=== PATIENT | female | born 1990 | race Caucasian/White ===

== ENCOUNTER → 2017-01-01 | Outpatient (CLI) | payer OTHER ==
[~2017-01-01] MED LIST: HYDR1TAB86 PO; IBUP-1773 PO; PREN-93 PO
--- OUTSIDE RECORDS SUMMARY | 2017-01-01 13:00 | XMS REPORT | Continuity of Care Document ---
Author Author [facility] Organization [facility] Address Unknown Phone Unavailable Allergies Active Description Code Type Severity Reaction Onset Reported/Identified Relationship to Patient Clinical Status Yes codeine [id number] Drug Allergy Mild NAUSEA 12/22/2013 Medications Problems Date Dx Coded Attending Type Code Diagnosis Diagnosed By 12/25/2013 DRISS LUJAN MD Ot 280.0 CHR BLOOD LOSS ANEMIA 12/25/2013 DRISS LUJAN MD Ot 648.21 ANEMIA-DELIVERED 12/25/2013 DRISS LUJAN MD Ot 669.51 FORCEP OR VACUUM EXTR DELIVERY 12/25/2013 DRISS LUJAN MD Ot V04.81 ND FOR PROPHYLACTIC VACCIN AND INOCULATI 12/25/2013 DRISS LUJAN MD Ot V06.1 [id number], COMBINED [ 12/25/2013 DRISS LUJAN MD Ot V27.0 DELIVER-SINGLE LIVEBORN 10/24/2016 DRISS LUJAN MD Ot 649.73 CERVICAL SHORTENING, ANTEPARTUM CONDITIO 10/24/2016 DRISS LUJAN MD Ot 649.73 CERVICAL SHORTENING, ANTEPARTUM CONDITIO 10/24/2016 DRISS LUJAN MD Ot 649.73 CERVICAL SHORTENING, ANTEPARTUM CONDITIO Procedures Code Description Performed By Performed On 96.49 OTHER INSTILLATION 12/22/2013 72.71 VACUUM EXT DEL W EPISIOT 12/23/2013 Results Encounters ACCT No. Visit Date/Time Discharge Status Pt. Type Provider Facility Loc./Unit Complaint [id number] 12/22/2013 19:39:00 2013 11:00:00 DIS Inpatient DRISS LUJAN MD [facility] WS INDUCTION [id number] 08/22/2013 11:09:00 2012 23:59:59 CLS Outpatient DRISS LUJAN MD [facility] RAD FUNDAL HEIGHT DISCREPENCY [id number] 10/24/2016 10:18:00 ACT Outpatient LE ROLLINS, DRISS Dueñas [facility] RAD DATING
--- NOTE | 2017-01-01 20:08 | Diagnostic Imaging Report ---
OB ultrasound. INDICATION: survey. FINDINGS: The heart rate is 140 beats per minute. The placenta is anterior and is 2 cm from the internal os, low lying. survey demonstrates the stomach, the urinary bladder, the kidneys, the posterior fossa and the lateral ventricles with no definite abnormality. The spine, three-vessel cord and the cord insertion are not well demonstrated. The heart is fairly visualized with no definite abnormality. The growth parameters are all around 17 weeks and 6 days. This is concordant with the gestational age based on first trimester ultrasound. IMPRESSION: 1. Live intrauterine with appropriate interval growth. 2. Follow-up study in three weeks is recommended to reevaluate the low-lying placenta, the cord insertion, three-vessel cord, the heart, and the spine, Dictated by: Dictated on workstation # [id number]
== END ==
LOC: RAD 12:58
PROVIDERS: ATTEND Family Medicine
DX: Z36 Encounter for antenatal screening of mother (principal)
CPT/HCPCS: 76805

== ENCOUNTER → 2017-04-09 | Outpatient (CLI) | payer MEDICAID, OTHER ==
--- NOTE | 2017-04-09 15:51 | Diagnostic Imaging Report ---
INDICATION: survey incomplete due to cord insertion, three-vessel view, the heart, and the spine. TECHNIQUE: Multiple real-time grayscale images were obtained over the gravid uterus. COMPARISON: 01/01/2017. FINDINGS: heart rate is 125 beats per minute. The placenta is anterior and is now above the lower uterine segment. No placenta previa. Three-vessel cord, the spine, and four-chamber views are better seen at this time with no definite abnormality. The cord insertion is still not well seen due to position. Biometrical measurements are as follows: Biparietal 7.5 cm, age 30 weeks 1 days, at the 4th percentile. Head circumference 28.8 cm, age 31 weeks 5 days, at 12th percentile. Abdominal circumference 27.9 cm, age 32 weeks 0 days, at the 52nd percentile. Femur length 5.8 cm, age 30 weeks 4 days, and the 9th percentile. Sonographic estimate age: 31 weeks 1 days. Sonographic estimated date of delivery: 06-10-17. Estimated Weight: 1744 gm (+/- 255 gm). LMP percentile: 23%. heart rate: 125 beats per minute. number: 1 of 1. IMPRESSION: The cord insertion is still not seen. Another followup exam could be attempted to reevaluate. Dictated by: Dictated on workstation # [id number]
== END ==
LOC: RAD 11:44
PROVIDERS: ATTEND Family Medicine
DX: Z36 Encounter for antenatal screening of mother (principal); Z3A.31 31 weeks gestation of pregnancy
CPT/HCPCS: 76816

== ENCOUNTER 2017-05-30 20:03 | Inpatient (IN) | payer MEDICAID, OTHER ==
[~2017-05-30] VITALS: Ht 160 cm; Wt 56.2 kg
[2017-05-30] MEDS ORDERED: D5 LR IV SOLUTION 1,000 ML IV ONE (20:28)
[2017-05-30] MEDS ORDERED: DINOPROSTONE 10 MG (CERVIDIL) INSERT ONE (20:28)
[2017-05-30] MEDS: D5 LR IV SOLUTION 1,000 ML IV SCH (20:37)
[2017-05-30 21:00] VITALS: BP 112/65
[2017-05-30] MEDS ORDERED: CALCIUM CARBONATE 500 MG (TUMS) TAB.CHEW ONE ×2 (22:58)
[2017-05-31] VITALS (51 sets, daily range): BP systolic 91–136; BP diastolic 51–85
[2017-05-31] MEDS ORDERED: CALCIUM CARBONATE 500 MG (TUMS) TAB.CHEW PO ONE (00:45)
[2017-05-31] MEDS ORDERED: DINOPROSTONE 10 MG (CERVIDIL) INSERT PV ONE (00:45)
[2017-05-31] MEDS ORDERED: MINERAL OIL CONCENTRATE 99.9% 15 ML UDC TOP PRN (00:45)
[2017-05-31 03:15] LABS: BASOPHILS % (AUTO) 0 % (0-10); EOSINOPHILS % (AUTO) 1 % (0-10); LYMPHOCYTES # (AUTO) 1.4 X 10^3 (1.0-4.0); LYMPHOCYTES % (AUTO) 20 % (12-44); MEAN CORPUSCULAR HEMOGLOBIN 29 PG (25-34); MEAN CORPUSCULAR HGB CONC 32 G/DL (32-36); MEAN CORPUSCULAR VOLUME 90 FL (80-99); MEAN PLATELET VOLUME 12.1 FL (7.4-10.4); MONOCYTES # (AUTO) 0.8 X 10^3 (0.0-1.0); MONOCYTES % (AUTO) 11 % (0-12); NEUTROPHILS # (AUTO) 4.9 X 10^3 (1.8-7.8); NEUTROPHILS % (AUTO) 68 % (42-75); PLATELET COUNT 193 10^3/uL (130-400); RED BLOOD COUNT 3.27 10^6/uL (4.35-5.85); RED CELL DISTRIBUTION WIDTH 13.1 % (10.0-14.5); WHITE BLOOD COUNT 7.2 10^3/uL (4.3-11.0)
--- NOTE | 2017-05-31 04:00 | History & Physical-OB ---
OB - Chief Complaint & HPI Date/Time Date of Admission: Date of Admission: May 30, 2017 at 20:06 Time Seen by Provider: 04:00 Chief Complaint/History OB-Reason for Admission/Chief: Induction of Labor Hx : 2 Hx Para: 1 Expected Date of Delivery: Jun 05, 2017 Gestational Age in Weeks: 39 Gestational Age in Days: 2 History of Labs GBS negative Allergies and Home Medications Allergies Coded Allergies: codeine (Verified Allergy, Mild, NAUSEA, 12/22/13) "causes vomiting" per pt. Home Medications Hydrocodone Bit/Acetaminophen 1 Each Tablet, 1-2 TAB PO Q4H PRN for PAIN, #20 Prescribed by: FACUNDO JENNINGS on 12/25/13 1015 Ibuprofen 600 Mg Tablet, 600 MG PO Q6H PRN for CRAMPS, #30 Prescribed by: FACUNDO JENNINGS on 12/25/13 1015 Vit/Fe Fumarate/Fa 1 Each Tablet, 1 EACH PO DAILY, #30 Prescribed by: JARROD RILEY on 12/22/13 472 OB - History Hx of Present Care: Yes Ultrasounds: Normal mid trimester US Obstetrical Complications: None Medical Complications: None Obstetrical History Hx Termination: No Hx Multiple Gestation: No Hx Stillbirth: No Hx Complication: No Hx Induced Hypertens: No Hx Maternal Gestational Diabet: No Delivery History Hx Dystocia: No Hx Large For Gestational Age I: No Hx Small for Gestational Age I: No Hx Section: No Hx Vaginal Delivery Post C-Sec: No Hx Blood Disorders: No Adverse Rxn to Tranfusion: No Patient Past Medical History no chronic medical problems Social History/Family History Recent Infectious Disease Expo: No Alcohol Use: Denies Use Recreational Drug Use: No Immunizations Hepatitis A: Yes Hepatitis B: Yes OB - Admission Exam Physical Exam Date Seen by Provider: May 31, 2017 Time Seen by Provider: 04:00 Vitals: Vital Signs 05/30/17 21:00 Pulse 97 Resp 18 B/P (MAP) 112/65 O2 Delivery Room Air HEENT: Moist Membranes Heart: Rhythm Normal Lungs: Clear Abdomen: Gravid Cervical Dilatation: 2cm Effacement: 50% Station: -3 Membranes: Intact Accelerations: Accelerations Present Decelerations: No Decelerations [place] Variability: Average (6-25) Peters Scoring Tool (Modified) Dilation (cm): 1-2cm (1) Effacement (%): 31-51% (1) Descent/Station: -3 (0) Cervix Consistency: Medium(1) Cervix Position: Middle/Mid-Position (1) Add 1 point for: Each previous vaginal delivery (1) Peters Score: 5 Labs Laboratory Tests Test 05/30/17 20:15 Range/Units White Blood Count 7.2 4.3-11.0 10^3/uL Red Blood Count 3.27 L 4.35-5.85 10^6/uL Hemoglobin 9.4 L 11.5-16.0 G/DL Hematocrit 29 L 35-52 % Mean Corpuscular Volume 90 80-99 FL Mean Corpuscular Hemoglobin 29 25-34 PG Mean Corpuscular Hemoglobin Concent 32 32-36 G/DL Red Cell Distribution Width 13.1 10.0-14.5 % Platelet Count 193 130-400 10^3/uL Mean Platelet Volume 12.1 H 7.4-10.4 FL Neutrophils (%) (Auto) 68 42-75 % Lymphocytes (%) (Auto) 20 12-44 % Monocytes (%) (Auto) 11 0-12 % Eosinophils (%) (Auto) 1 0-10 % Basophils (%) (Auto) 0 0-10 % Neutrophils # (Auto) 4.9 1.8-7.8 X 10^3 Lymphocytes # (Auto) 1.4 1.0-4.0 X 10^3 Monocytes # (Auto) 0.8 0.0-1.0 X 10^3 Eosinophils # (Auto) 0.0 0.0-0.3 10^3/uL Basophils # (Auto) 0.0 0.0-0.1 10^3/uL OB - Assessment/Plan/Diagnosis Assessment Assessment: induction of labor Plan Plan: Induction (by cervidil) DRISS LUJAN MD May 31, 2017 04:00
[2017-05-31] MEDS: D5 LR IV SOLUTION 1,000 ML IV SCH ×2 (04:46→12:48)
[2017-05-31] MEDS ORDERED: CATHETER FLUSH 10 ML SYR IV SCH ×2 (06:00→22:00)
[2017-05-31] MEDS ORDERED: OXYTOCIN/NORMAL SALINE 500 ML IV SCH ×2 (07:34→15:25)
[2017-05-31] MEDS ORDERED: LACTATED RINGERS 1,000 ML IV ONE (08:06)
[2017-05-31] MEDS ORDERED: SUFENTA 0.6MCG/ML BUPIVA 0.125 100 ML ONE (08:24)
[2017-05-31] MEDS ORDERED: fentaNYL INJECTION 100 MCG/2 ML AMP ONE (09:12)
[2017-05-31] MEDS ORDERED: BUPIVACAINE 0.25% 30 ML (SENSORCAINE) VIAL ONE (09:13)
[2017-05-31] MEDS ORDERED: LACTATED RINGERS 1,000 ML IV SCH (10:03)
[2017-05-31] MEDS ORDERED: ONDANSETRON 4 MG/2 ML (SDV) Z0FRAN IV PRN (10:15)
[2017-05-31] MEDS ORDERED: fentaNYL INJECTION 100 MCG/2 ML AMP IVP ONE (10:15)
[2017-05-31] MEDS ORDERED: NALOXONE 0.4 MG/ML 1 ML (NARCAN) VIAL IV PRN ×2 (10:15)
[2017-05-31] MEDS ORDERED: METOCLOPRAMIDE INJ 10 MG/2 ML (REGLAN) IV PRN (10:15)
[2017-05-31] MEDS ORDERED: diphenhydrAMINE 50 MG/ML INJ (BENADRYL) IV PRN (10:15)
[2017-05-31] MEDS ORDERED: EPIDURAL (SUFENTA 0.6MCG/ML BUPIVA 0.125%) 100 ML BAG EPI PRN (10:15)
[2017-05-31] MEDS ORDERED: BUPIVACAINE 0.25% 30 ML (SENSORCAINE) VIAL INJ ONE (10:15)
[2017-05-31] MEDS ORDERED: IBUPROFEN 600 MG (MOTRIN) TAB PO ONE (14:05)
[2017-05-31] MEDS ORDERED: TETANUS,DIPTH,PERTUSS P/F (BOOSTRIX) 0.5 ML VIAL IM ONE (15:30)
[2017-05-31] MEDS ORDERED: WITCH HAZEL(TUCKS) 40 EA JAR TOP PRN (15:30)
[2017-05-31] MEDS ORDERED: MEASLES,MUMPS,RUBELLA 1 EA INJ SQ ONE (15:30)
[2017-05-31] MEDS ORDERED: HYDROcodone/APAP 5 MG/325 MG (LORTAB) TAB PO PRN (15:30)
[2017-05-31] MEDS ORDERED: BENZOCAINE/MENTHOL (DERMOPLAST) 56 ML CAN TP PRN (15:30)
--- NOTE | 2017-05-31 15:43 | OB Labor & Delivery Record ---
L&D History Date of Service Date of Service: May 31, 2017 History Expected Date of Delivery: Jun 05, 2017 Gestational Age in Weeks: 39 Hx : 2 Hx Para: 1 Complications Events: Routine care Operative Indications (Cesarea: N/A-Vaginal Delivery Intrapartal Events: None L&D Stage1 Stage One Onset of Labor - Date: May 31, 2017 Onset of Labor - Time: 07:15 Monitors and Tracing Monitor Mode: Internal Heart Rate: 120 Monitor Accelerations: Uniform Monitor Decelerations: Early Station: -3 Group Home Variability: Average (6-10) Short Term Variability: Present Presentation: Vertex Vital Signs VS - Last 72 Hours, by Label 05/30/17 05/31/17 05/31/17 05/31/17 21:00 07:00 07:30 07:45 Temp 98.4 97.2 Pulse 97 64 79 62 Resp 18 18 18 18 B/P (MAP) 112/65 102/55 126/85 111/66 Pulse Ox 98 O2 Delivery Room Air Room Air Room Air Room Air 05/31/17 05/31/17 05/31/17 05/31/17 08:00 08:15 08:30 08:45 Pulse 68 68 65 65 Resp 18 18 18 18 B/P (MAP) 112/69 110/64 110/65 110/65 O2 Delivery Room Air Room Air Room Air Room Air 05/31/17 05/31/17 05/31/17 05/31/17 09:00 09:15 09:21 09:24 Temp 97.8 Pulse 70 71 71 87 Resp 18 18 18 18 B/P (MAP) 107/62 117/69 107/67 104/65 Pulse Ox 100 99 100 O2 Delivery Room Air Room Air Room Air Room Air 05/31/17 05/31/17 05/31/17 05/31/17 09:25 09:28 09:31 09:34 Pulse 66 80 82 100 Resp 18 18 18 18 B/P (MAP) 106/65 107/69 107/59 108/66 Pulse Ox 100 99 98 98 O2 Delivery Room Air Room Air Room Air Room Air 05/31/17 05/31/17 05/31/17 05/31/17 09:36 09:39 09:42 09:45 Pulse 86 102 63 110 Resp 18 18 18 18 B/P (MAP) 113/66 103/59 112/64 108/71 Pulse Ox 97 97 97 98 O2 Delivery Room Air Room Air Room Air Room Air 05/31/17 05/31/17 05/31/17 05/31/17 09:48 09:51 09:54 09:57 Pulse 102 79 96 98 Resp 18 18 18 18 B/P (MAP) 107/72 105/60 103/60 99/67 Pulse Ox 98 97 97 98 O2 Delivery Room Air Room Air Room Air Room Air 05/31/17 05/31/17 05/31/17 05/31/17 10:00 10:05 10:10 10:15 Temp 97.6 Pulse 78 76 87 75 Resp 18 18 18 18 B/P (MAP) 91/56 97/58 106/63 110/59 Pulse Ox 98 98 98 99 O2 Delivery Room Air Room Air Room Air Room Air 05/31/17 05/31/17 05/31/17 05/31/17 10:20 10:25 10:30 10:45 Pulse 75 103 85 98 Resp 18 18 18 18 B/P (MAP) 109/51 94/56 116/60 108/68 Pulse Ox 99 98 98 98 O2 Delivery Room Air Room Air Room Air Room Air 05/31/17 11:00 Pulse 72 Resp 18 B/P (MAP) 100/67 Pulse Ox 100 O2 Delivery Room Air Signs of Distress by FHT Signs of Distress no Rupture of Membranes Spontaneous Ruture of Membrane: No Amniotic Membrane Rupture Time: 07 Amniotic Membrane Fluid Desc.: Clear Induction/Anesthesia Epidural Cath Placement - Time: 09:00 L&D Stage2 Stage Two Stage II Date: May 31, 2017 Stage II Time: 13:14 Monitors and Tracing Monitor Mode: Internal Heart Rate: 120 Monitor Accelerations: Uniform Monitor Decelerations: None Supervisor [place]ilting Variability: Average (6-10) Short Term Variability: Present Position: Left Occiput Anterior Presentation: Vertex Signs of Distress by FHT Signs of Distress no Cord Descript/Complications Cord Vessel Description: 3 Vessels Delivery Type Infant Delivery Method: Spontaneous Vaginal Anterior Shoulder: Left Episiotomy/Perineal Laceration Laceraction(s)/Extensions: No Condition of Infant Delivery 1 minute Comment: 7 5 minute Comment: 9 Condition of Infant Condition of Infant: Living Exam: No Observed Abnormalities Resuscitation Resuscitation: N/A - Spontaneous Resp L&D Stage3 Stage Three Stage III Date: May 31, 2017 Stage III Time: 13:18 Pictocin Pitocin Administration mu/min: 10 Pitocin ml/hr: 10 Pitocin Administration Comment: OXYTOCIN INCREASED Placenta Delivery Placenta Delivery: Spontaneous Delivery Summary Summary 200 Condition of Delivery Examined: Cervix Examined Post Hemorrhage: No DRISS LUJAN MD May 31, 2017 15:42
[2017-05-31] MEDS: IBUPROFEN 600 MG (MOTRIN) TAB PO SCH ×2 (16:07→22:10)
[2017-06-01 01:00] VITALS: BP 93/51
[2017-06-01 04:00] VITALS: BP 97/64
[2017-06-01] MEDS: IBUPROFEN 600 MG (MOTRIN) TAB PO SCH ×2 (04:12→09:52)
[2017-06-01 06:45] LABS: BASOPHILS % (AUTO) 0 % (0-10); EOSINOPHILS % (AUTO) 1 % (0-10); LYMPHOCYTES # (AUTO) 1.2 X 10^3 (1.0-4.0); LYMPHOCYTES % (AUTO) 20 % (12-44); MEAN CORPUSCULAR HEMOGLOBIN 29 PG (25-34); MEAN CORPUSCULAR HGB CONC 32 G/DL (32-36); MEAN CORPUSCULAR VOLUME 90 FL (80-99); MEAN PLATELET VOLUME 11.1 FL (7.4-10.4); MONOCYTES # (AUTO) 0.7 X 10^3 (0.0-1.0); MONOCYTES % (AUTO) 11 % (0-12); NEUTROPHILS # (AUTO) 4.1 X 10^3 (1.8-7.8); NEUTROPHILS % (AUTO) 68 % (42-75); PLATELET COUNT 152 10^3/uL (130-400); RED BLOOD COUNT 3.15 10^6/uL (4.35-5.85)
--- NOTE | 2017-06-01 08:00 | Discharge Summary ---
Diagnosis/Chief Complaint Date of Admission May 30, 2017 at 20:06 Date of Discharge June 01, 2017 Discharge Date: Jun 01, 2017 Discharge Time: 15:00 Admission Diagnosis Admission Diagnosis 1. Intrauterine at term 39 weeks 2. Anemia secondary to iron deficiency during Discharge Diagnosis 1. Intrauterine at term 39 weeks 2. Anemia secondary to iron deficiency during Reason Hospital Visit 26-year-old 2 now term 2 female who initially presented to labor and delivery during the evening of May 30, 2017 for induction of labor at 39 weeks 2 days gestation. Patient's care was essentially unremarkable. She had an occasional contraction upon presentation. She underwent Cervidil cervical ripening and tolerated well. Her EDC was listed as June 05, 2017. Discharge Summary-OBS Procedures 1. Epidural per anesthesia 2. Spontaneous vaginal delivery Discharge Physical Examination Allergies: Coded Allergies: codeine (Verified Allergy, Mild, NAUSEA, 12/22/13) "causes vomiting" per pt. Vitals & I&Os Vital Signs Date Time Temp Pulse Resp B/P (MAP) Pulse Ox O2 Delivery O2 Flow Rate FiO2 06/01/17 04:00 98.1 72 17 97/64 100 Room Air General Appearance: No Acute Distress HEENT: Mucous Memb Moist/[place] Respiratory: Clear to Auscultation Cardiovascular: Regular Rate Abdominal: Soft (with uterus firm) Hospital Course upon presentation she underwent Cervidil cervical ripening and tolerated well. She developed a contraction pattern. At 0700 in the morning of May 31 Cervidil was removed. She underwent amniotomy with placement of scalp electrode with clear fluid noted. Patient required Pitocin augmentation to achieve adequate contraction pattern. She received epidural per anesthesia without problems. She tolerated the epidural very well. Eventually she went on to completion and delivered a term viable female with Apgars of 9 at 1 minute and 9 at 5 minutes. See labor and delivery summary for full details. Following delivery patient underwent care orders. She had no complications during the remainder of hospital stay. She was ambulatory. She did not develop shortness of breath. Her hemoglobin on June 01, 2017 was 9.1 compared to admission hemoglobin of 9.4. All questions were answered on the morning of June 01, 2017. She will follow up in 6 weeks. Pending Labs Laboratory Tests 06/01/17 06:36: White Blood Count 6.0, Red Blood Count 3.15, Hemoglobin 9.1, Hematocrit 28, Mean Corpuscular Volume 90, Mean Corpuscular Hemoglobin 29, Mean Corpuscular Hemoglobin Concent 32, Red Cell Distribution Width 13.0, Platelet Count 152, Mean Platelet Volume 11.1, Neutrophils (%) (Auto) 68, Lymphocytes (%) (Auto) 20 , Monocytes (%) (Auto) 11, Eosinophils (%) (Auto) 1, Basophils (%) (Auto) 0, Neutrophils # (Auto) 4.1, Lymphocytes # (Auto) 1.2, Monocytes # (Auto) 0.7, Eosinophils # (Auto) 0.0, Basophils # (Auto) 0.0 Discharge Instructions to patient/family Please see electonic discharge instructions given to patient. Discharge Medications Reviewed and agree with Discharge Medication list on patient's Discharge Instruction sheet Clinical Quality Measures DVT/VTE Risk/Contraindication: Risk Factor Score Per Nursin RFS Level Per Nursing on Admit: 3=High DRISS LUJAN MD Jun 01, 2017 08:00
--- NOTE | 2017-06-01 08:02 | Discharge Inst-Women's Service ---
Discharge Inst-Women's Serv Consults/Follow Up Additional Follow Up: Yes (with Dr. Lujan in 6 weeks) Activity Activity: Activity as Tolerated (with vaginal rest for 6 weeks) Driving Instructions: You May Drive NO SMOKING: NO SMOKING Diet Discharge Diet: Regular Diet Return to The Hospital For: as below Symptoms to Report to : Bleeding Excessive, Pain Increased, Fever Over 101 Degrees F, Vaginal Bleeding Increase, Vaginal Discharge Foul For Any Problems or Questions: Contact Your Physician DRISS LUJAN MD Jun 01, 2017 08:02
[2017-06-01 08:45] VITALS: BP 106/94
--- NOTE | 2017-06-01 12:50 | Anesthesia-Regional Post-Op ---
Regional Patient Condition Mental Status: Alert, Oriented x3 Circulation: Same as Pre-Op Headache: Absent Sensation: Full Recovery Motor Block: Absent Post Op Complications Complications None Follow Up Care/Instructions Patient Instructions None needed. Anesthesia/Patient Condition Patient is doing well, no complaints, stable vital signs, no apparent adverse anesthesia problems. No complications reported per nursing. D/C home per [facility] Criteria: No ALYSE CARLSON CRNA Jun 01, 2017 12:50
[2017-06-01] MEDS ORDERED: TETANUS,DIPTH,PERTUSS P/F (BOOSTRIX) 0.5 ML VIAL IM ONE (16:06)
== END 2017-06-01 17:05 | disposition home or self-care (01) | DRG 775 ==
LOC: WSo 20:03 → LDRP 20:04 → WSo 20:05 → LDRP 20:06 → ENPENDDIS 06-01 15:00
PROVIDERS: ADMIT Family Medicine; ATTEND Family Medicine
PROC: 10E0XZZ Delivery of Products of Conception, External Approach (ICD-10-PCS; principal; 2017-05-31)
DX: O99.013 Anemia complicating pregnancy, third trimester (principal); D50.9 Iron deficiency anemia, unspecified; Z3A.39 39 weeks gestation of pregnancy; Z37.0 Single live birth; Z23 Encounter for immunization
CPT/HCPCS: 36415; 85025; 86850; 86900; 86901; 90707; 90715

== ENCOUNTER → 2019-02-18 | Outpatient (CLI) | payer MEDICAID ==
--- NOTE | 2019-02-18 12:47 | Diagnostic Imaging Report ---
INDICATION: anatomical assessment during normal . TECHNIQUE: Multiple real-time grayscale images were obtained over the gravid uterus. COMPARISON: None. FINDINGS: Single viable intrauterine , currently in a breech presentation. Normal amount of amniotic fluid. The placenta is anterior and without evidence for previa. Visualized anatomical structures including the kidneys, bladder, stomach, intracranial structures, four-chamber heart, three-vessel cord, and spine are unremarkable. The cord insertion site cannot be well visualized owing to positioning. Maternal adnexa is not visualized. Biometrical measurements are as follows: Biparietal 8.80 cm, age 35 weeks 4 days. Head circumference 32.45 cm, age 36 weeks 6 days. Abdominal circumference 31.83 cm, age 35 weeks 6 days. Femur length 6.35 cm, age 32 weeks 6 days. Sonographic estimate age: 35 weeks 2 days. Sonographic estimated date of delivery: 03/23/2019. Estimated Weight: 2585 gm (+/- 377 gm). LMP percentile: 11%. heart rate: 136 beats per minute. number: 1 of 1. IMPRESSION: 1. Single viable intrauterine , currently in a breech presentation. Sonographic estimated age at 35 weeks 2 days for an estimated date of delivery of March 23, 2019. No definitive abnormality is noted at this advanced gestational age. Cord insertion site however cannot be well visualized. Dictated by: Dictated on workstation # [id number]
== END ==
LOC: RAD 10:32
PROVIDERS: ATTEND Family Medicine
DX: Z36.89 Encounter for other specified antenatal screening (principal); Z3A.35 35 weeks gestation of pregnancy
CPT/HCPCS: 76805

== ENCOUNTER 2019-03-12 15:27 | Outpatient (CLI) | payer MEDICAID ==
[~2019-03-12] VITALS: Ht 160 cm; Wt 54.9 kg
--- NOTE | 2019-03-12 15:20 | NUR ---
ELIZABETH WILLIS presented to unit via ambulation from home, accompanied by SO , with c/o VAGINAL PRESSURE. ELIZABETH WILLIS weighed, gowned, voided, and to bed. EFHM and TOCO applied, VS taken. ELIZABETH WILLIS oriented to bed controls, call light, TV, heat, and A/C controls.
[2019-03-12 15:30] VITALS: BP 105/61
--- NOTE | 2019-03-12 15:50 | NUR ---
SVE per Salomón Arrieta RN. 1.5cm, 60%, -3
--- NOTE | 2019-03-12 16:06 | NUR ---
Dr. Mazariegos notified of pt. arrival, complains and evaluation. Orders received to discharge home on labor precautions.
--- NOTE | 2019-03-12 16:30 | NUR ---
Discharge instructions explained and packet given to pt, signature obtained to verify understanding. Pt. ambulated off unit without without difficulty, no S/S of distress noted. All personal belongings in pt. possession.
== END 2019-03-12 16:30 | disposition home or self-care (01) ==
LOC: WSo 15:27 → LDRP 15:29 → WSo 16:30
PROVIDERS: ATTEND Family Medicine
DX: O99.89 Other specified diseases and conditions complicating pregnancy, childbirth and the puerperium (principal); R10.2 Pelvic and perineal pain; Z3A.38 38 weeks gestation of pregnancy
CPT/HCPCS: 99213

== ENCOUNTER 2019-03-18 06:14 | Inpatient (IN) | payer MEDICAID ==
[2019-03-18] VITALS (68 sets, daily range): BP systolic 82–151; BP diastolic 49–72
[~2019-03-18] VITALS: Ht 160 cm; Wt 56.7 kg
--- NOTE | 2019-03-18 06:00 | NUR ---
ELIZABETH WILLIS presented to unit via from ED, accompanied by S/O, with c/o INDUCTION. ELIZABETH WILLIS weighed, gowned, voided, and to bed. EFHM and TOCO applied, VS taken. ELIZABETH WILLIS oriented to bed controls, call light, TV, heat, and A/C controls.
[2019-03-18] MEDS ORDERED: OXYTOCIN/NORMAL SALINE 500 ML IV SCH ×3 (06:21→18:46)
[2019-03-18] MEDS ORDERED: D5 LR IV SOLUTION 1,000 ML IV ONE (06:30)
[2019-03-18] MEDS: D5 LR IV SOLUTION 1,000 ML IV SCH ×2 (06:39→11:33)
[2019-03-18 06:40] LABS: BASOPHILS % (AUTO) 0 % (0-10); EOSINOPHILS # (AUTO) 0.1 10^3/uL (0.0-0.3); EOSINOPHILS % (AUTO) 1 % (0-10); HEMATOCRIT 30 % (35-52); HEMOGLOBIN 9.6 G/DL (11.5-16.0); LYMPHOCYTES # (AUTO) 1.7 X 10^3 (1.0-4.0); LYMPHOCYTES % (AUTO) 28 % (12-44); MEAN CORPUSCULAR HEMOGLOBIN 28 PG (25-34); MEAN CORPUSCULAR HGB CONC 33 G/DL (32-36); MEAN CORPUSCULAR VOLUME 87 FL (80-99); MEAN PLATELET VOLUME 11.2 FL (7.4-10.4); MONOCYTES # (AUTO) 0.6 X 10^3 (0.0-1.0); MONOCYTES % (AUTO) 11 % (0-12); NEUTROPHILS # (AUTO) 3.7 X 10^3 (1.8-7.8); NEUTROPHILS % (AUTO) 60 % (42-75); PLATELET COUNT 194 10^3/uL (130-400); RED CELL DISTRIBUTION WIDTH 13.5 % (10.0-14.5); WHITE BLOOD COUNT 6.1 10^3/uL (4.3-11.0)
--- NOTE | 2019-03-18 07:13 | History & Physical-OB ---
OB - Chief Complaint & HPI Date/Time Date of Admission: Date of Admission: March 18, 2019 at 06:14 Date seen by a Provider: March 18, 2019 Time Seen by a Provider: 07:05 Chief Complaint/History OB-Reason for Admission/Chief: Induction of Labor Hx : 3 Hx Para: 2 Expected Date of Delivery: March 24, 2019 Gestational Age in Weeks: 39 Gestational Age in Days: 1 Admission Nurse Assessment Rev: Yes History of Labs GBS negative Allergies and Home Medications Allergies Coded Allergies: codeine (Verified Allergy, Mild, NAUSEA, 12/22/13) "causes vomiting" per pt. Home Medications Vit/Fe Fumarate/Fa 1 Each Tablet, 1 EACH PO DAILY Prescribed by: JARROD RILEY on 12/22/13 360 Patient Home Medication List Home Medication List Reviewed: Yes OB - History Hx of Present Care: Yes Ultrasounds: Other (normal third trimester US) Obstetrical Complications: None Medical Complications: None Obstetrical History Hx Termination: No Hx Multiple Gestation: No Hx Stillbirth: No Hx Complication: No Hx Induced Hypertens: No Hx Maternal Gestational Diabet: No Delivery History Hx Dystocia: No Hx Large For Gestational Age I: No Hx Small for Gestational Age I: No Hx Section: No Hx Vaginal Delivery Post C-Sec: No Hx Blood Disorders: No Adverse Rxn to Tranfusion: No Patient Past Medical History no chronic medical problems Immunizations Hepatitis A: Yes Hepatitis B: Yes OB - Admission Exam Physical Exam HEENT: Moist Membranes Heart: Rhythm Normal Lungs: Clear Abdomen: Gravid (with FH of 36) Extremities: Normal Effacement: 75% Station: -2 Membranes: Intact Heart Rate: 140's Accelerations: Accelerations Present Short Term Variability: Present Half-Way Variability: Average (6-25) Contractions on Admission: >10 Minutes Apart Intensity: Mild Peters Scoring Tool (Modified) Dilation (cm): 1-2cm (1) Effacement (%): 51-79% (2) Descent/Station: -2 (1) Cervix Consistency: Soft (2) Cervix Position: Posterior (0) Add 1 point for: Each previous vaginal delivery (1) Peters Score: 8 Labs Laboratory Tests Test 03/18/19 06:20 Range/Units White Blood Count 6.1 4.3-11.0 10^3/uL Red Blood Count 3.40 L 4.35-5.85 10^6/uL Hemoglobin 9.6 L 11.5-16.0 G/DL Hematocrit 30 L 35-52 % Mean Corpuscular Volume 87 80-99 FL Mean Corpuscular Hemoglobin 28 25-34 PG Mean Corpuscular Hemoglobin Concent 33 32-36 G/DL Red Cell Distribution Width 13.5 10.0-14.5 % Platelet Count 194 130-400 10^3/uL Mean Platelet Volume 11.2 H 7.4-10.4 FL Neutrophils (%) (Auto) 60 42-75 % Lymphocytes (%) (Auto) 28 12-44 % Monocytes (%) (Auto) 11 0-12 % Eosinophils (%) (Auto) 1 0-10 % Basophils (%) (Auto) 0 0-10 % Neutrophils # (Auto) 3.7 1.8-7.8 X 10^3 Lymphocytes # (Auto) 1.7 1.0-4.0 X 10^3 Monocytes # (Auto) 0.6 0.0-1.0 X 10^3 Eosinophils # (Auto) 0.1 0.0-0.3 10^3/uL Basophils # (Auto) 0.0 0.0-0.1 10^3/uL OB - Assessment/Plan/Diagnosis Assessment Assessment: induction of labor Admission Dx IUP at term, 39w1d Admission Status: Inpatient Order (span 2 midnights) Reason for Inpatient Admission: L&D induction by AROM Plan Plan: Induction Induction Method: AROM Other Plan -she desires epidural -pitocin augmentation DRISS LUJAN MD March 18, 2019 07:13
[2019-03-18] MEDS ORDERED: SUFENTA 0.6MCG/ML BUPIVA 0.125 100 ML ONE (08:16)
--- NOTE | 2019-03-18 08:25 | NUR ---
Navdeep Santana CRNA here for epidural placement. Procedure explained, consent reviewed and signed by anesthesia. Questions answered to patient's satisfaction. Time out taken to verify correct patient/procedure. Patient up to side of bed, assisted into sitting position. Betadine prep done x3 and sterile drape applied. Local done, see anesthesia record. Test dose given, see anesthesia record for drug and dosage. Epidural catheter secured in place. Epidural placement complete. Assisted back into bed, monitors adjusted. Epidural dosed, see anesthesia record. Epidural of Sufenta/Bupvicaine @ 12cc/hr stated per pump. Patient tolerated procedure well.
[2019-03-18] MEDS: EPIDURAL (SUFENTA 0.6MCG/ML BUPIVA 0.125%) 100 ML BAG EPI PRN ×2 (08:49→17:21)
[2019-03-18] MEDS ORDERED: fentaNYL INJECTION 100 MCG/2 ML AMP ONE (08:52)
[2019-03-18] MEDS ORDERED: LACTATED RINGERS 1,000 ML IV ONE (09:11)
[2019-03-18] MEDS ORDERED: METOCLOPRAMIDE INJ 10 MG/2 ML (REGLAN) IV PRN (09:15)
[2019-03-18] MEDS ORDERED: diphenhydrAMINE 50 MG/ML INJ (BENADRYL) IV PRN (09:15)
[2019-03-18] MEDS ORDERED: NALOXONE 0.4 MG/ML 1 ML (NARCAN) VIAL IV PRN ×2 (09:15)
[2019-03-18] MEDS: ONDANSETRON 4 MG/2 ML (SDV) Z0FRAN IV PRN ×2 (10:30→14:36)
--- NOTE | 2019-03-18 12:47 | NUR ---
This RN updated Dr. Mazariegos on SVE. No new orders received.
[2019-03-18] MEDS ORDERED: MEPIVACAINE (CARBOCAINE) 2% 50 ML VIAL ONE (14:47)
--- NOTE | 2019-03-18 18:46 | OB Labor & Delivery Record ---
L&D History Date of Service Date of Service: March 18, 2019 History Expected Date of Delivery: March 23, 2019 Gestational Age in Weeks: 39 Hx : 3 Hx Para: 2 Complications Events: Routine care Operative Indications (Cesarea: N/A-Vaginal Delivery Intrapartal Events: None Other Complications GBS negative at 36 weeks maternal gestation L&D Stage1 Stage One Onset of Labor - Date: March 18, 2019 Onset of Labor - Time: 07:03 Monitors and Tracing Monitor Mode: Internal Heart Rate: 125 Monitor Accelerations: Uniform Station: -1 Bed Laster Variability: Average (6-10) Short Term Variability: Present Presentation: Vertex Vital Signs VS - Last 72 Hours, by Label 03/18/19 03/18/19 03/18/19 03/18/19 06:10 07:25 07:40 07:55 Temp 96.8 97.3 Pulse 87 89 72 76 Resp 16 16 16 B/P (MAP) 114/64 (81) 105/64 (78) 108/57 (74) 111/63 (79) O2 Delivery Room Air Room Air Room Air 03/18/19 03/18/19 03/18/19 03/18/19 08:10 08:25 08:30 08:35 Pulse 83 93 82 80 Resp 16 16 16 16 B/P (MAP) 107/61 (76) 109/67 (81) 103/58 (73) 105/69 (81) Pulse Ox 100 100 O2 Delivery Room Air Room Air Room Air Room Air 03/18/19 03/18/19 03/18/19 03/18/19 08:40 08:45 08:50 08:55 Pulse 78 72 90 100 Resp 16 16 16 16 B/P (MAP) 111/72 (85) 103/71 (82) 104/71 (82) 101/67 (78) Pulse Ox 100 100 100 100 O2 Delivery Room Air Room Air Room Air Room Air 03/18/19 03/18/19 03/18/19 03/18/19 09:00 09:03 09:06 09:09 Pulse 93 97 110 122 Resp 16 16 16 16 B/P (MAP) 94/57 (69) 95/59 (71) 97/62 (74) 90/58 (69) Pulse Ox 100 100 100 100 O2 Delivery Room Air Room Air Room Air Room Air 03/18/19 03/18/19 03/18/19 03/18/19 09:12 09:15 09:18 09:21 Pulse 91 125 128 86 Resp 16 16 16 16 B/P (MAP) 98/57 (71) 98/64 (75) 95/62 (73) 92/64 (73) Pulse Ox 100 100 100 100 O2 Delivery Room Air Room Air Room Air Room Air 03/18/19 03/18/19 03/18/19 03/18/19 09:25 09:34 09:37 09:45 Pulse 78 83 104 84 Resp 16 16 16 16 B/P (MAP) 94/64 (74) 89/53 (65) 82/53 (63) 91/54 (66) Pulse Ox 100 100 100 100 O2 Delivery Room Air Room Air Room Air Room Air 03/18/19 03/18/19 03/18/19 03/18/19 09:50 09:52 09:55 10:05 Pulse 88 98 122 93 Resp 16 16 16 16 B/P (MAP) 88/49 (62) 93/50 (64) 106/72 (83) 96/52 (67) Pulse Ox 100 100 100 100 O2 Delivery Room Air Room Air Room Air Room Air 03/18/19 03/18/19 03/18/19 03/18/19 10:20 10:35 10:50 11:05 Pulse 112 95 104 85 Resp 16 16 16 16 B/P (MAP) 88/57 (67) 88/57 (67) 91/56 (68) 103/58 (73) Pulse Ox 100 100 100 100 O2 Delivery Room Air Room Air Room Air Room Air 03/18/19 03/18/19 03/18/19 03/18/19 11:20 11:35 11:50 12:05 Temp 97.0 Pulse 81 95 82 78 Resp 16 16 16 16 B/P (MAP) 92/60 (71) 104/56 (72) 102/59 (73) 96/53 (67) Pulse Ox 100 100 O2 Delivery Room Air Room Air Room Air Room Air 03/18/19 03/18/19 03/18/19 03/18/19 12:20 12:35 12:50 13:05 Pulse 77 66 68 71 Resp 16 16 16 16 B/P (MAP) 99/54 (69) 100/58 (72) 98/53 (68) 94/58 (70) O2 Delivery Room Air Room Air Room Air Room Air 03/18/19 03/18/19 03/18/19 03/18/19 13:20 13:35 13:50 14:05 Pulse 71 74 76 67 Resp 16 18 18 18 B/P (MAP) 151/54 (86) 103/59 (74) 107/60 (76) 106/59 (75) O2 Delivery Room Air Room Air Room Air Room Air 03/18/19 03/18/19 03/18/19 03/18/19 14:20 14:35 14:50 15:05 Temp 97.0 Pulse 68 79 76 88 Resp 18 16 16 16 B/P (MAP) 99/57 (71) 104/68 (80) 97/63 (74) 98/60 (73) O2 Delivery Room Air Room Air Room Air Room Air 03/18/19 03/18/19 03/18/19 03/18/19 15:20 15:35 15:55 16:05 Pulse 69 71 84 76 Resp 16 16 16 16 B/P (MAP) 92/52 (65) 88/53 (65) 92/53 (66) 106/59 (75) O2 Delivery Room Air Room Air Room Air Room Air 03/18/19 03/18/19 03/18/19 03/18/19 16:20 16:35 16:50 17:05 Temp 97.1 Pulse 71 93 81 88 Resp 16 16 16 16 B/P (MAP) 100/62 (75) 101/61 (74) 106/55 (72) 100/59 (73) O2 Delivery Room Air Room Air Room Air Room Air Signs of Distress by FHT Signs of Distress no Rupture of Membranes Spontaneous Ruture of Membrane: No Amniotic Membrane Rupture Time: 0703 Amniotic Membrane Fluid Desc.: Clear Induction/Anesthesia Epidural Cath Placement - Time: 0849 L&D Stage2 Stage Two Stage II Date: March 18, 2019 Stage II Time: 18:16 Monitors and Tracing Monitor Mode: Internal Heart Rate: 125 Monitor Accelerations: Uniform Half-Way Variability: Average (6-10) Short Term Variability: Present Position: Left Occiput Anterior Presentation: Vertex Signs of Distress by FHT Signs of Distress no Cord Descript/Complications Cord Vessel Description: 3 Vessels Delivery Type Delivery Method: Spontaneous Vaginal Anterior Shoulder: Left Episiotomy/Perineal Laceration Laceraction(s)/Extensions: No Condition of Infant Delivery 1 minute Comment: 8 5 minute Comment: 1 Notes secondary apnea occurred at 5 minutes. At 10 minutes 4 Condition of Condition of : Living Exam: No Observed Abnormalities Resuscitation Resuscitation: N/A - Spontaneous Resp Resuscitation Comments: Following secondary apnea, CPAP provided L&D Stage3 Stage Three Stage III Date: March 18, 2019 Stage III Time: 18:20 Pictocin Pitocin Administration mu/min: 20 Pitocin ml/hr: 20 Pitocin Administration Comment: pitocin increased per protocol. Placenta Delivery Placenta Delivery: Spontaneous Delivery Summary Summary Estimated blood loss (mL): 150 Condition of Delivery Examined: Cervix Examined Post Hemorrhage: No Intervention Required no DRISS LUJAN MD March 18, 2019 18:46
[2019-03-18] MEDS ORDERED: BENZOCAINE/MENTHOL (DERMOPLAST) 56 ML CAN TP PRN (19:00)
[2019-03-18] MEDS ORDERED: TETANUS,DIPTH,PERTUSS P/F (BOOSTRIX) 0.5 ML VIAL IM ONE (19:00)
[2019-03-18] MEDS ORDERED: MEASLES,MUMPS,RUBELLA 1 EA INJ SQ ONE (19:00)
[2019-03-18] MEDS ORDERED: WITCH HAZEL(TUCKS) 40 EA JAR TOP PRN (19:00)
--- NOTE | 2019-03-18 19:30 | NUR ---
193: Nurse at pt bedside. Assessment complete at this time. Fundal massage done at this time. Fundus is firm and two under umbilicus. Minimal bleeding noted. 1999:Fundal massage done at this time. Fundus is firm and two under umbilicus. Minimal bleeding noted. 2030: Fundal massage done at this time. Fundus is firm and two under umbilicus. Minimal bleeding noted. Pt. request to go to nursery to see infant. Pt up to bathroom with standby assist. [facility] provided. Pad and underwear put on at this time. Pt changed into clean gown and then transferred to nursery via wheelchair.
[2019-03-18] MEDS ORDERED: IBUPROFEN 600 MG (MOTRIN) TAB PO ONE (21:33)
[2019-03-18] MEDS: DOCUSATE SODIUM 100 MG (COLACE) CAP PO SCH (21:39)
[2019-03-18] MEDS ORDERED: CATHETER FLUSH 10 ML SYR IV SCH (22:00)
[2019-03-19 00:11] VITALS: BP 105/58
[2019-03-19] MEDS: ACETAMINOPHEN 500 MG TAB (TYLENOL) PO SCH ×5 (00:12→23:33)
[2019-03-19 04:00] VITALS: BP 92/55
[2019-03-19] MEDS: IBUPROFEN 600 MG (MOTRIN) TAB PO SCH ×4 (04:00→22:45)
[2019-03-19 06:02] LABS: BASOPHILS % (AUTO) 0 % (0-10); EOSINOPHILS % (AUTO) 1 % (0-10); HEMATOCRIT 26 % (35-52); HEMOGLOBIN 8.4 G/DL (11.5-16.0); LYMPHOCYTES % (AUTO) 14 % (12-44); MEAN CORPUSCULAR HEMOGLOBIN 28 PG (25-34); MEAN CORPUSCULAR HGB CONC 32 G/DL (32-36); MEAN CORPUSCULAR VOLUME 88 FL (80-99); MEAN PLATELET VOLUME 10.5 FL (7.4-10.4); MONOCYTES # (AUTO) 0.8 X 10^3 (0.0-1.0); MONOCYTES % (AUTO) 11 % (0-12); NEUTROPHILS # (AUTO) 5.3 X 10^3 (1.8-7.8); NEUTROPHILS % (AUTO) 75 % (42-75); PLATELET COUNT 151 10^3/uL (130-400); RED CELL DISTRIBUTION WIDTH 13.6 % (10.0-14.5); WHITE BLOOD COUNT 7.1 10^3/uL (4.3-11.0)
--- NOTE | 2019-03-19 07:32 | Progress Note (SOAP) ---
Subjective Date Seen by a Provider: March 19, 2019 Time Seen by a Provider: 07:15 Subjective/Events-last exam Having uterine cramps that tylenol is not controlling pain. No abnormal vaginal bleeding. Objective Exam Vital Signs Date Time Temp Pulse Resp B/P (MAP) Pulse Ox O2 Delivery O2 Flow Rate FiO2 03/19/19 04:00 98.6 97 20 92/55 (67) 97 Room Air 03/19/19 00:11 98.2 82 18 105/58 (74) 98 Room Air 03/18/19 20:18 107 18 111/67 (82) Room Air 03/18/19 20:03 88 18 112/63 (79) Room Air 03/18/19 19:48 84 18 111/52 (71) Room Air 03/18/19 19:33 90 18 135/58 (83) Room Air 03/18/19 19:18 98.0 83 16 97/52 (67) Room Air 03/18/19 19:04 81 16 97/51 (66) Room Air 03/18/19 18:33 97.6 74 16 111/58 (75) Room Air 03/18/19 18:18 81 16 102/52 (69) Room Air 03/18/19 18:05 75 16 113/57 (75) Room Air 03/18/19 17:50 87 16 103/60 (74) Room Air 03/18/19 17:35 81 16 102/58 (73) Room Air 03/18/19 17:20 72 16 91/53 (66) Room Air 03/18/19 17:05 88 16 100/59 (73) Room Air 03/18/19 16:50 81 16 106/55 (72) Room Air 03/18/19 16:35 97.1 93 16 101/61 (74) Room Air 03/18/19 16:20 71 16 100/62 (75) Room Air 03/18/19 16:05 76 16 106/59 (75) Room Air 03/18/19 15:55 84 16 92/53 (66) Room Air 03/18/19 15:35 71 16 88/53 (65) Room Air 03/18/19 15:20 69 16 92/52 (65) Room Air 03/18/19 15:05 88 16 98/60 (73) Room Air 03/18/19 14:50 76 16 97/63 (74) Room Air 03/18/19 14:35 79 16 104/68 (80) Room Air 03/18/19 14:20 97.0 68 18 99/57 (71) Room Air 03/18/19 14:05 67 18 106/59 (75) Room Air 03/18/19 13:50 76 18 107/60 (76) Room Air 03/18/19 13:35 74 18 103/59 (74) Room Air 03/18/19 13:20 71 16 151/54 (86) Room Air 03/18/19 13:05 71 16 94/58 (70) Room Air 03/18/19 12:50 68 16 98/53 (68) Room Air 03/18/19 12:35 66 16 100/58 (72) Room Air 03/18/19 12:20 77 16 99/54 (69) Room Air 03/18/19 12:05 78 16 96/53 (67) Room Air 03/18/19 11:50 82 16 102/59 (73) Room Air 03/18/19 11:35 97.0 95 16 104/56 (72) 100 Room Air 03/18/19 11:20 81 16 92/60 (71) 100 Room Air 03/18/19 11:05 85 16 103/58 (73) 100 Room Air 03/18/19 10:50 104 16 91/56 (68) 100 Room Air 03/18/19 10:35 95 16 88/57 (67) 100 Room Air 03/18/19 10:20 112 16 88/57 (67) 100 Room Air 03/18/19 10:05 93 16 96/52 (67) 100 Room Air 03/18/19 09:55 122 16 106/72 (83) 100 Room Air 03/18/19 09:52 98 16 93/50 (64) 100 Room Air 03/18/19 09:50 88 16 88/49 (62) 100 Room Air 03/18/19 09:45 84 16 91/54 (66) 100 Room Air 03/18/19 09:37 104 16 82/53 (63) 100 Room Air 03/18/19 09:34 83 16 89/53 (65) 100 Room Air 03/18/19 09:25 78 16 94/64 (74) 100 Room Air 03/18/19 09:21 86 16 92/64 (73) 100 Room Air 03/18/19 09:18 128 16 95/62 (73) 100 Room Air 03/18/19 09:15 125 16 98/64 (75) 100 Room Air 03/18/19 09:12 91 16 98/57 (71) 100 Room Air 03/18/19 09:09 122 16 90/58 (69) 100 Room Air 03/18/19 09:06 110 16 97/62 (74) 100 Room Air 03/18/19 09:03 97 16 95/59 (71) 100 Room Air 03/18/19 09:00 93 16 94/57 (69) 100 Room Air 03/18/19 08:55 100 16 101/67 (78) 100 Room Air 03/18/19 08:50 90 16 104/71 (82) 100 Room Air 03/18/19 08:45 72 16 103/71 (82) 100 Room Air 03/18/19 08:40 78 16 111/72 (85) 100 Room Air 03/18/19 08:35 80 16 105/69 (81) 100 Room Air 03/18/19 08:30 82 16 103/58 (73) 100 Room Air 03/18/19 08:25 93 16 109/67 (81) Room Air 03/18/19 08:10 83 16 107/61 (76) Room Air 03/18/19 07:55 76 16 111/63 (79) Room Air 03/18/19 07:40 72 16 108/57 (74) Room Air I & O 03/19/19 07:00 Intake Total 2000 ml Output Total 800 ml Balance 1200 ml Capillary Refill : General Appearance: No Apparent Distress Respiratory: Lungs Clear Gastrointestinal: soft (with uterus firm) Results Lab Laboratory Tests 03/19/19 05:45: White Blood Count 7.1, Red Blood Count 2.96L, Hemoglobin 8.4L, Hematocrit 26L, Mean Corpuscular Volume 88, Mean Corpuscular Hemoglobin 28, Mean Corpuscular Hemoglobin Concent 32, Red Cell Distribution Width 13.6, Platelet Count 151, Mean Platelet Volume 10.5H, Neutrophils (%) (Auto) 75, Lymphocytes (%) (Auto) 14 , Monocytes (%) (Auto) 11, Eosinophils (%) (Auto) 1, Basophils (%) (Auto) 0, Neutrophils # (Auto) 5.3, Lymphocytes # (Auto) 1.0, Monocytes # (Auto) 0.8, Eosinophils # (Auto) 0.0, Basophils # (Auto) 0.0 Assessment/Plan Assessment/Plan Assess & Plan/Chief Complaint 1. S/P day 1 -routine PP care orders -oxycodone for pain control along with tylenol if necessary. Clinical Quality Measures DVT/VTE Risk/Contraindication: Risk Factor Score Per Nursin RFS Level Per Nursing on Admit: 2=Moderate DRISS LUJAN MD March 19, 2019 07:32
--- NOTE | 2019-03-19 07:32 | Anesthesia-Regional Post-Op ---
Regional Patient Condition Mental Status: Alert, Oriented x3 Circulation: Same as Pre-Op Headache: Absent Sensation: Full Recovery Motor Block: Absent Post Op Complications Complications None Follow Up Care/Instructions Patient Instructions None needed. Anesthesia/Patient Condition Patient is doing well, no complaints, stable vital signs, no apparent adverse anesthesia problems. No complications reported per nursing. MARINA GARDNER CRNA March 19, 2019 07:32
[2019-03-19 08:30] VITALS: BP 101/72
--- NOTE | 2019-03-19 08:30 | NUR ---
A.M. ASSESSMENT COMPLETED. VSS. CARING FOR IN ROOM.
[2019-03-19] MEDS: oxyCODONE/APAP 5/325MG (PERCOCET 5) TABLET PO PRN ×2 (09:01→20:12)
[2019-03-19] MEDS: PRENATAL VITAMIN 1 EA TAB PO SCH (09:01)
[2019-03-19] MEDS: DOCUSATE SODIUM 100 MG (COLACE) CAP PO SCH ×2 (09:01→20:11)
--- NOTE | 2019-03-19 09:01 | NUR ---
PERCOCET 5 1 TAB P.O. FOR C/O SORE BOTTOM. INSPECTED PERINEUM. NO SWELLING OR REDNESS.
[2019-03-19] MEDS ORDERED: TETANUS,DIPTH,PERTUSS P/F (BOOSTRIX) 0.5 ML VIAL IM ONE (09:55)
--- NOTE | 2019-03-19 10:30 | NUR ---
HAS BEEN IN TO SEE PT. CONTINUES TO CARE FOR IN ROOM. GOOD INTERACTION NOTED.
[2019-03-19 12:00] VITALS: BP 100/56
--- NOTE | 2019-03-19 12:00 | NUR ---
PT HAS AMBULATED DOWNSTAIRS WITH S.O. VSS. C/O LOW BACK ACHE AT EPIDURAL SITE. WARM BLANKET APPLIED. TO ROOM R/T C/O BLISTER ON NIPPLE.
--- NOTE | 2019-03-19 13:55 | NUR ---
CONTINUES TO CARE FOR IN ROOM.
[2019-03-19 16:00] VITALS: BP 106/52
--- NOTE | 2019-03-19 16:00 | NUR ---
PT AMBULATED OFF UNIT WITH S.O. WATCHING AT INTERVALS. VSS. CONTINUES TO C/O LOW BACK DISCOMFORT BUT DECLINED ANY EXTRA PAIN MEDS AT THIS TIME.
--- NOTE | 2019-03-19 18:00 | NUR ---
FAMILY AT BEDSIDE. DENIES ANY WANTS OR NEEDS.
--- NOTE | 2019-03-19 18:05 | NUR ---
Report received from Karla Figueredo RN
[2019-03-19] MEDS ORDERED: IBUPROFEN 600 MG (MOTRIN) TAB PO SCH (21:30)
[2019-03-19 22:30] VITALS: BP 101/58
[2019-03-20] MEDS: oxyCODONE/APAP 5/325MG (PERCOCET 5) TABLET PO PRN (02:49)
[2019-03-20 02:50] VITALS: BP 96/62
[2019-03-20] MEDS: IBUPROFEN 600 MG (MOTRIN) TAB PO SCH (05:17)
[2019-03-20] MEDS: ACETAMINOPHEN 500 MG TAB (TYLENOL) PO SCH (05:18)
--- NOTE | 2019-03-20 07:00 | NUR ---
DR LUJAN HERE NEW ORDERS RECIEVED.
--- NOTE | 2019-03-20 07:00 | NUR ---
REPORT FROM MISA ELI.
--- NOTE | 2019-03-20 07:19 | Discharge Summary ---
Diagnosis/Chief Complaint Date of Admission March 18, 2019 at 06:14 Date of Discharge March 20, 2019 Discharge Date: March 20, 2019 Discharge Time: 11:00 Admission Diagnosis Admission Diagnosis 1. IUP at 39 weeks Discharge Diagnosis 1. IUP at 39 weeks Reason Hospital Visit 28 yo G3 now T3 L3 who initially presented for induction of labor by AROM during the am of 03/18. She was noted to be at 39w1d gestation upon admission. GBS status was noted to be negative at her 36 week clinic check. Discharge Summary-OBS Procedures 1. Epidural per anesthesia 2. Spontaneous vaginal delivery Discharge Physical Examination Allergies: Coded Allergies: codeine (Verified Adverse Reaction, Mild, NAUSEA, 03/19/19) "causes vomiting" per pt. Vitals & I&Os Vital Signs Date Time Temp Pulse Resp B/P (MAP) Pulse Ox O2 Delivery O2 Flow Rate FiO2 03/20/19 02:50 98.2 74 16 96/62 (73) 98 Room Air General Appearance: No Acute Distress Respiratory: Clear to Auscultation Cardiovascular: Regular Rate Abdominal: Normal Bowel Sounds, Soft Neuro: Normal Gait, Normal Speech Hospital Course See PN Discharge Instructions to patient/family Please see electronic discharge instructions given to patient. Discharge Medications Reviewed and agree with Discharge Medication list on patient's Discharge Instruction sheet Clinical Quality Measures DVT/VTE Risk/Contraindication: Risk Factor Score Per Nursin RFS Level Per Nursing on Admit: 2=Moderate DRISS LUJAN MD March 20, 2019 07:19
[2019-03-20] MEDS ORDERED: OXYC1TAB87 PO (07:21)
[2019-03-20] MEDS ORDERED: IBUP-844 PO (07:21)
--- NOTE | 2019-03-20 07:22 | Discharge Inst-Women's Service ---
Discharge Inst-Women's Serv Depart Medication/Instructions New, Converted or Re-Newed RX: RX on Chart Consults/Follow Up Additional Follow Up: Yes (Dr Lujan in 6 weeks.) Activity Driving Instructions: You May Drive Nothing Inside Vagina: No Britton (for 6 weeks.) Diet Discharge Diet: Regular Diet Return to The Hospital For: as below Symptoms to Report to : Bleeding Excessive, Pain Increased, Fever Over 101 Degrees F, Urination Difficulty, Vaginal Discharge Foul For Any Problems or Questions: Contact Your Physician DRISS LUJAN MD March 20, 2019 07:22
[2019-03-20 09:20] VITALS: BP 105/55
--- NOTE | 2019-03-20 09:20 | NUR ---
INITIAL ASSESSMENT COMPLETED, VSS, NO DISTRESS NOTED, SEE INTERVENTIONS FOR DETAILED ASSESSMENTS.
[2019-03-20] MEDS: DOCUSATE SODIUM 100 MG (COLACE) CAP PO SCH (09:30)
[2019-03-20] MEDS: PRENATAL VITAMIN 1 EA TAB PO SCH (09:30)
--- NOTE | 2019-03-20 09:30 | NUR ---
PT UP TO SHOWER, S/O IN BED WITH INFANT.
--- NOTE | 2019-03-20 10:58 | NUR ---
D/C INSTRUCTIONS EXPLAINED, SIGNED BY PT, PT DENIES QUESTIONS OR CONCERNS, VERBALIZES UNDERSTANDING OF FOLLOW UP CARE AND INSTRUCTIONS.
--- NOTE | 2019-03-20 11:25 | NUR ---
PT DISCHARGED TO HOME, AMBULATED TO PRIVATE CAR WITH RN AND S/O AT SIDE, INFANT SECURED IN REAR FACING CAR SEAT, PT VERBALIZES UNDERSTANDING OF FOLLOW UP CARE, NO DISTRESS NOTED.
== END 2019-03-20 11:25 | disposition home or self-care (01) | DRG 807 ==
LOC: LDRP 06:14
PROVIDERS: ADMIT Family Medicine; ATTEND Family Medicine
PROC: 10E0XZZ Delivery of Products of Conception, External Approach (ICD-10-PCS; principal; 2019-03-18)
PROC: 10907ZC Drainage of Amniotic Fluid, Therapeutic from Products of Conception, Via Natural or Artificial Opening (ICD-10-PCS; 2019-03-18)
DX: O80 Encounter for full-term uncomplicated delivery (principal); Z3A.39 39 weeks gestation of pregnancy; Z37.0 Single live birth; Z88.5 Allergy status to narcotic agent; Z23 Encounter for immunization
CPT/HCPCS: 36415; 85025; 86850; 86900; 86901; 90715

== ENCOUNTER → 2022-01-03 | Outpatient (CLI) | payer MEDICAID, OTHER ==
[~2022-01-03] MED LIST changes: +IBUP-844 PO; +OXYC1TAB87 PO
--- NOTE | 2022-01-03 13:59 | Diagnostic Imaging Report ---
INDICATION: Left axillary lump. FINDINGS: Sonographic interrogation of the area of lump in the left axilla was performed. No sonographic abnormality is identified. No solid or cystic mass is detected. IMPRESSION: No sonographic abnormality is detected. ACR BI-RADS Category 1: Negative. Dictated by: Dictated on workstation # [id number]
== END ==
LOC: RAD 13:15
PROVIDERS: ATTEND Family Medicine
DX: N63.32 Unspecified lump in axillary tail of the left breast (principal)
CPT/HCPCS: 76642

== ENCOUNTER → 2022-03-27 | Outpatient (CLI) | payer OTHER ==
--- NOTE | 2022-03-27 15:53 | Diagnostic Imaging Report ---
INDICATION: Cough and weight loss PA and lateral chest Heart size and pulmonary vascularity are normal. Lungs are clear. There are no effusions or pneumothoraces. IMPRESSION: No acute abnormalities in the chest. Dictated by: Dictated on workstation # [id number]
== END ==
LOC: RAD 14:24
PROVIDERS: ATTEND Family Medicine
DX: R05.9 Cough, unspecified (principal); R63.4 Abnormal weight loss
CPT/HCPCS: 71046

== ENCOUNTER → 2022-07-20 | Outpatient (CLI) | payer OTHER | LOC: RAD 10:39 | PROVIDERS: ATTEND Family Medicine | DX: Z12.31 Encounter for screening mammogram for malignant neoplasm of breast (principal); R55 Syncope and collapse | CPT/HCPCS: 93005 ==

== ENCOUNTER → 2023-03-23 | Outpatient (CLI) | payer OTHER ==
--- NOTE | 2023-03-23 11:52 | Diagnostic Imaging Report ---
INDICATION: Right breast pain and palpable abnormality in left breast. Focused ultrasonography is performed in the 9 o'clock position of the right breast. Patient reports pain without evidence of underlying cystic or solid lesion. There is no shadowing abnormality or evidence of architectural distortion. Next, ultrasonography is performed in the upper outer quadrant of the left breast at site of patient's palpable abnormality without evidence of underlying cystic structure or mass. There is no architectural distortion or abnormal shadowing. IMPRESSION: Category 2, benign findings. Continued clinical followup would be useful. Otherwise patient should follow recommended screening mammogram guidelines based on risk factors. ACR BI-RADS Category 2: Benign findings. Result letter will be mailed to the patient. Note: At least 10% of breast cancer is not imaged by mammography. Dictated by: Dictated on workstation # [id number]
--- NOTE | 2023-03-23 11:54 | Diagnostic Imaging Report ---
INDICATION: Localized right breast pain with palpable abnormality in the lateral left breast. COMPARISON: There is no previous mammogram study for comparison. Breast parenchyma is extremely dense. There are also benign-type calcifications. This may be a mixture of secretory and vascular calcification. No dominant mass identified. There is no evidence of clustered pleomorphic microcalcification. Ultrasound revealed no localized abnormality in either breast. IMPRESSION: Category 2, benign findings. High breast parenchymal density limits mammographic sensitivity and continued clinical correlation would be useful. Bilateral benign-type calcifications are present and greater than expected for patient's age. ACR BI-RADS Category 2: Benign findings. Result letter will be mailed to the patient. Note: At least 10% of breast cancer is not imaged by mammography. Dictated by: Dictated on workstation # [id number]
== END ==
LOC: RAD 09:43
PROVIDERS: ATTEND Family Medicine
DX: N64.4 Mastodynia (principal); N63.20 Unspecified lump in the left breast, unspecified quadrant
CPT/HCPCS: 76642; 77066; G0279; 77062